=== PATIENT | female | born 1990 | race Caucasian/White ===

== ENCOUNTER 2017-03-18 14:55 | Emergency (ER) | payer OTHER ==
[~2017-03-18] VITALS: Ht 167.6 cm; Wt 82.9 kg
[~2017-03-18 14:55] MED LIST: ADDERALL10 MG PO; ADDERALL20 MG PO; ALEVE LIQUID G220 MG PO; AMBIEN10 MG PO; ATARAX10 MG PO; CIPRO500 MG PO; ESCITALOPRAM OX10 MG PO; FIORICET WI1 CAPSULE PO; FOCALIN; LEXAPRO10 MG PO; MEDROL DOSEPAK4 MG PO; MELATONIN3 MG PO; MOTRIN800 MG PO; NAPROSYN500 MG PO; NORA-BE0.35 MG PO; OXCARBAZEPINE150 MG PO; OXCARBAZEPINE300 MG PO; PRENATAL TABLE1 EAC3; PROVENTIL HFA6.7 GM IH; RANITIDINE HCL150 MG PO; TOPOMAX; TRILEPTAL600 MG PO; TYLENOL EXTRA500 MG PO; Tylenol Regular Stre PO; WOMEN'S DAILY1 EAC1 PO; XANAX0.25 MG PO; ZANTAC150 MG PO; ZOFRAN ODT8 MG PO; ZOFRAN4 MG PO
[2017-03-18] MEDS ORDERED: ADDERALL30 MG PO (15:08)
[2017-03-18] MEDS ORDERED: RANITIDINE HCL300 M1 PO (15:09)
[2017-03-18] MEDS ORDERED: PRENATAL TABLE1 EAC3 PO (15:09)
[2017-03-18 16:41] LABS: ADD MIUA? YES; BILIRUBIN NEGATIVE; BLOOD LARGE; COLOR YELLOW ((YELLOW)); GLUCOSE (STRIP) NEGATIVE; KETONES NEGATIVE; LEUKOCYTES TRACE; NITRITE NEGATIVE; PROTEIN (STRIP) 30; SPECIFIC GRAVITY 1.019 (1.000-1.030); UROBILINOGEN 0.2 MG/DL (0.2-1.0)
[2017-03-18 16:52] LABS: BACTERIA RARE /HPF; EPITHELIAL CELLS RARE /HPF; MUCUS TRACE /LPF; RED BLOOD CELLS TNTC /HPF (0-5); UCUL ADDED? NO
[2017-03-18 17:01] LABS: HEMATOCRIT 42.1 % (36.0-46.0); MCHC 33.5 G/DL (30.0-36.0); MCV 83.7 FL (83-99); MEAN PLAT.VOLUME 9.8 uM^3 (9.5-12.4); PLATELET COUNT 308 K/uL (156-360); RBC DIS.WIDTH-CV 12.6 % (11.8-14.6); RBC DIS.WIDTH-SD 38.2 % (39-53); RED BLOOD COUNT 5.03 M/uL (3.80-5.20); WHITE BLOOD COUNT 13.7 K/uL (4.1-10.2)
[2017-03-18 17:09] LABS: CHLORIDE 109 mEq/L (99-109); POTASSIUM 3.5 mEq/L (3.7-5.4); SODIUM 141 mEq/L (136-147)
[2017-03-18 17:11] LABS: GLUCOSE 94 mg/dL (70-99)
[2017-03-18 17:12] LABS: ANION GAP 9 MEQ/L (2-14)
[2017-03-18 17:15] LABS: GFR ESTIMATE (CALCULATED) > 59 mL/min/
[2017-03-18 17:16] LABS: UREA NITROGEN (BUN) 11 mg/dL (9-23)
[2017-03-18 17:24] LABS: QUANTITATIVE HCG < 4.0 MIU/ML
[2017-03-18] MEDS ORDERED: KEFLEX500 MG PO (19:10)
[2017-03-18 19:25] VITALS: BP 135/92
== END 2017-03-18 19:26 | disposition home or self-care (01) ==
LOC: EME 14:55
PROVIDERS: Physician Assistant Medical
DX: O03.9 Complete or unspecified spontaneous abortion without complication (principal); O03.88 Urinary tract infection following complete or unspecified spontaneous abortion; J45.909 Unspecified asthma, uncomplicated
CPT/HCPCS: 76856; 80048; 81003; 84702; 85027; 99281; 99284

== ENCOUNTER 2017-05-03 11:31 | Emergency (ER) | payer OTHER ==
[~2017-05-03] VITALS: Ht 165.1 cm; Wt 84.2 kg
[~2017-05-03 11:31] MED LIST changes: +ADDERALL30 MG PO; +KEFLEX500 MG PO; +PRENATAL TABLE1 EAC3 PO; +RANITIDINE HCL300 M1 PO
[2017-05-03 12:57] LABS: HEMATOCRIT 44.3 % (36.0-46.0); MCH 28.1 PG (29.0-34.0); MCHC 33.6 G/DL (30.0-36.0); MCV 83.6 FL (83-99); MEAN PLAT.VOLUME 9.9 uM^3 (9.5-12.4); PLATELET COUNT 286 K/uL (156-360); RBC DIS.WIDTH-CV 12.4 % (11.8-14.6); WHITE BLOOD COUNT 13.2 K/uL (4.1-10.2)
[2017-05-03 13:23] LABS: QUANTITATIVE HCG 222.3 MIU/ML
[2017-05-03 13:37] LABS: CHLORIDE 106 mEq/L (99-109); POTASSIUM 3.8 mEq/L (3.7-5.4); SODIUM 140 mEq/L (136-147)
[2017-05-03 13:39] LABS: GLUCOSE 113 mg/dL (70-99)
[2017-05-03 13:40] LABS: ANION GAP 10 MEQ/L (2-14)
[2017-05-03 13:43] LABS: GFR ESTIMATE (CALCULATED) > 59 mL/min/
[2017-05-03] MEDS ORDERED: METFORMIN HCL500 MG PO (13:43)
[2017-05-03] MEDS ORDERED: ADDERALL10 MG PO (13:43)
[2017-05-03] MEDS ORDERED: RANITIDINE HCL300 MG PO (13:43)
[2017-05-03 13:44] LABS: UREA NITROGEN (BUN) 12 mg/dL (9-23)
[2017-05-03] MEDS ORDERED: FIBER PO (13:44)
[2017-05-03 13:45] LABS: ADD MIUA? YES; BILIRUBIN NEGATIVE; BLOOD LARGE; COLOR AMBER ((YELLOW)); GLUCOSE (STRIP) NEGATIVE; KETONES NEGATIVE; LEUKOCYTES MODERATE; NITRITE NEGATIVE; PROTEIN (STRIP) 100; SPECIFIC GRAVITY 1.027 (1.000-1.030); UROBILINOGEN 0.2 MG/DL (0.2-1.0)
[2017-05-03 13:49] LABS: BACTERIA NONE SEEN /HPF; EPITHELIAL CELLS 3+ /HPF; MUCUS TRACE /LPF; RED BLOOD CELLS TNTC /HPF (0-5); UCUL ADDED? NO; WHITE BLOOD CELLS 20-30 /HPF (0-5)
[2017-05-03 16:47] VITALS: BP 125/77
== END 2017-05-03 16:50 | disposition home or self-care (01) ==
LOC: EME 11:31 → RME 11:31
DX: O03.9 Complete or unspecified spontaneous abortion without complication (principal); Z82.49 Family history of ischemic heart disease and other diseases of the circulatory system; Z3A.01 Less than 8 weeks gestation of pregnancy; E11.9 Type 2 diabetes mellitus without complications; J45.909 Unspecified asthma, uncomplicated; Z79.84 Long term (current) use of oral hypoglycemic drugs
CPT/HCPCS: 76801; 80048; 81003; 84702; 85027; 86900; 86901; 99281; 99284

== ENCOUNTER 2017-08-13 10:19 | Emergency (ER) | payer OTHER ==
[~2017-08-13] VITALS: Ht 167.6 cm; Wt 81.2 kg
[~2017-08-13 10:19] MED LIST changes: +FIBER PO; +METFORMIN HCL500 MG PO; +RANITIDINE HCL300 MG PO
[2017-08-13 16:16] VITALS: BP 131/87
== END 2017-08-13 16:19 | disposition home or self-care (01) ==
LOC: EME 10:19
DX: S09.90XA Unspecified injury of head, initial encounter (principal); H11.32 Conjunctival hemorrhage, left eye; S80.11XA Contusion of right lower leg, initial encounter; S50.02XA Contusion of left elbow, initial encounter; Y04.2XXA Assault by strike against or bumped into by another person, initial encounter; I10 Essential (primary) hypertension; E11.9 Type 2 diabetes mellitus without complications; Z79.84 Long term (current) use of oral hypoglycemic drugs; J45.909 Unspecified asthma, uncomplicated; K21.9 Gastro-esophageal reflux disease without esophagitis; F32.9 Major depressive disorder, single episode, unspecified; F41.9 Anxiety disorder, unspecified; F90.9 Attention-deficit hyperactivity disorder, unspecified type; F42.8 Other obsessive-compulsive disorder
CPT/HCPCS: 70450; 71020; 99281; 99284

== ENCOUNTER 2018-02-21 08:56 | Emergency (ER) | payer OTHER ==
[~2018-02-21] VITALS: Ht 165.1 cm; Wt 77.2 kg
[2018-02-21] MEDS ORDERED: BENTYL20 MG PO (12:11)
[2018-02-21] MEDS ORDERED: ZOFRAN ODT4 MG PO (12:11)
[2018-02-21] MEDS ORDERED: GOLYTELY SOLU4000 ML PO (12:11)
[2018-02-21 12:27] VITALS: BP 113/80
[2018-02-22] MEDS ORDERED: FLEET MINERAL133 ML PR (21:05)
== END 2018-02-21 12:38 | disposition home or self-care (01) ==
LOC: EME 08:56
DX: K59.00 Constipation, unspecified (principal); R11.2 Nausea with vomiting, unspecified; R68.83 Chills (without fever); E11.9 Type 2 diabetes mellitus without complications; Z79.84 Long term (current) use of oral hypoglycemic drugs; Z90.49 Acquired absence of other specified parts of digestive tract
CPT/HCPCS: 74022; 99281; 99284

== ENCOUNTER 2018-02-22 14:25 | Emergency (ER) | payer OTHER ==
[~2018-02-22] VITALS: Ht 165.1 cm; Wt 76.2 kg
[~2018-02-22 14:25] MED LIST changes: +BENTYL20 MG PO; +GOLYTELY SOLU4000 ML PO; +ZOFRAN ODT4 MG PO
[2018-02-22 18:06] LABS: HEMATOCRIT 43.5 % (36.0-46.0); HEMOGLOBIN 14.7 G/DL (11.9-15.5); MCH 28.9 PG (29.0-34.0); MCHC 33.8 G/DL (30.0-36.0); MCV 85.6 FL (83-99); PLATELET COUNT 286 K/uL (156-360); RBC DIS.WIDTH-CV 12.3 % (11.8-14.6); RBC DIS.WIDTH-SD 38.7 % (39-53); RED BLOOD COUNT 5.08 M/uL (3.80-5.20); WHITE BLOOD COUNT 10.8 K/uL (4.1-10.2)
[2018-02-22 18:17] LABS: ALBUMIN 4.6 g/dL (3.2-4.8)
[2018-02-22 18:18] LABS: CHLORIDE 110 mEq/L (99-109); POTASSIUM 4.7 mEq/L (3.7-5.4); SODIUM 141 mEq/L (136-147)
[2018-02-22 18:20] LABS: GLUCOSE 94 mg/dL (70-99); TOTAL PROTEIN 7.3 g/dL (6.4-8.3)
[2018-02-22 18:22] LABS: TOTAL BILIRUBIN 0.4 mg/dL (0.0-1.0)
[2018-02-22 18:23] LABS: ALKALINE PHOSPHATASE 61 IU/L (3-129)
[2018-02-22 18:24] LABS: CREATININE 0.7 mg/dL (0.6-1.3); GFR ESTIMATE (CALCULATED) > 59 mL/min/
[2018-02-22 18:25] LABS: AST (GOT) 17 IU/L (2-34); UREA NITROGEN (BUN) 10 mg/dL (9-23)
[2018-02-22 18:27] LABS: ALT (GPT) 28 IU/L (3-49)
[2018-02-22 18:34] LABS: QUANTITATIVE HCG < 4.0 MIU/ML
[2018-02-22 20:12] LABS: APPEARANCE CLEAR ((CLEAR)); BILIRUBIN NEGATIVE; BLOOD NEGATIVE; COLOR YELLOW ((YELLOW)); GLUCOSE (STRIP) NEGATIVE; KETONES 5; LEUKOCYTES NEGATIVE; NITRITE NEGATIVE; PROTEIN (STRIP) NEGATIVE; SPECIFIC GRAVITY 1.032 (1.000-1.030); UCUL ADDED? NO; UROBILINOGEN 0.2 MG/DL (0.2-1.0)
[2018-02-22] MEDS ORDERED: FLEET MINERAL133 ML PR (21:05)
[2018-02-22 21:26] VITALS: BP 125/80
== END 2018-02-22 21:26 | disposition home or self-care (01) ==
LOC: EME 14:25
PROVIDERS: Physician Assistant Medical
DX: K59.00 Constipation, unspecified (principal); R10.9 Unspecified abdominal pain; E11.9 Type 2 diabetes mellitus without complications; F41.9 Anxiety disorder, unspecified; F32.9 Major depressive disorder, single episode, unspecified; F42.9 Obsessive-compulsive disorder, unspecified; F90.9 Attention-deficit hyperactivity disorder, unspecified type; I10 Essential (primary) hypertension; J45.909 Unspecified asthma, uncomplicated; K21.9 Gastro-esophageal reflux disease without esophagitis; K58.9 Irritable bowel syndrome, unspecified; Z79.84 Long term (current) use of oral hypoglycemic drugs
CPT/HCPCS: 74177; 80053; 81003; 84702; 85027; 99281; 99284; J1885; J2405; J7030

== ENCOUNTER 2018-06-17 19:25 | Emergency (ER) | payer OTHER ==
[~2018-06-17] VITALS: Ht 165.1 cm; Wt 72.7 kg
[~2018-06-17 19:25] MED LIST changes: +FLEET MINERAL133 ML PR
[2018-06-17] MEDS ORDERED: ULTRAM50 MG PO (20:48)
[2018-06-17] MEDS ORDERED: MOTRIN800 MG PO (20:48)
[2018-06-17 21:04] VITALS: BP 135/99
== END 2018-06-17 21:05 | disposition home or self-care (01) ==
LOC: EME 19:25
DX: S93.402A Sprain of unspecified ligament of left ankle, initial encounter (principal); S80.212A Abrasion, left knee, initial encounter; S80.211A Abrasion, right knee, initial encounter; W10.1XXA Fall (on)(from) sidewalk curb, initial encounter; Y92.480 Sidewalk as the place of occurrence of the external cause; E11.9 Type 2 diabetes mellitus without complications; I10 Essential (primary) hypertension; F32.9 Major depressive disorder, single episode, unspecified; F90.9 Attention-deficit hyperactivity disorder, unspecified type
CPT/HCPCS: 73610; 99281; 99284; L4350